=== PATIENT | male | born 1995 | race Caucasian/White ===

== ENCOUNTER 2019-04-15 09:22 | Emergency (ER) | payer BC, SELFPAY ==
--- NOTE | 2019-04-15 11:21 | EDPHYS ---
Physician Documentation [facility] Name: Javier Guzman Age: 24 yrs Sex: Male : 1995 Arrival Date: 04/15/2019 Time: 09:29 Bed 12 Private MD: ED Physician Bright Ashton HPI: 04/15 11:22 This 24 yrs old Male presents to ER via Wheelchair with complaints of Ankle kdr Injury. 11:22 The patient presents with decreased range of motion, a deformity, an injury, pain, that kdr is acute, swelling, tenderness, weakness. The complaints affect the right ankle, right ankle. Onset: The symptoms/episode began/occurred yesterday. Context: The problem was [place] dock and stepped on a rope - inverting his right ankle. He is able to bear weight but limps, resulted from a mis-step by the patient, The patient can partially bear weight on the affected extremity. the patient is able to ambulate, with mild difficulty. Associated signs and symptoms: The patient has no apparent associated signs or symptoms. Modifying factors: The symptoms are alleviated by nothing, the symptoms are aggravated by weight bearing, movement. Severity of symptoms: At their worst the symptoms were mild, in the emergency department the symptoms are unchanged. The patient has not experienced similar symptoms in the past. The patient has not recently seen a physician. Historical: - Allergies: 09:34 No Known Allergies; la1 - PMHx: 09:34 None; la1 - Immunization history:: Adult Immunizations up to date. - Social history:: Smoking status: Patient/guardian denies using tobacco. - Ebola Screening: : No symptoms or risks identified at this time. ROS: 11:22 Constitutional: Negative for fever, chills, and weight loss, Eyes: Negative for injury, kdr pain, redness, and discharge, Neck: Negative for injury, pain, and swelling, Cardiovascular: Negative for chest pain, palpitations, and edema. 11:22 MS/extremity: Positive for decreased range of motion, pain, swelling, tenderness, of the right ankle. Exam: 11:22 Constitutional: This is a well developed, well nourished patient who is awake, alert, kdr and in no acute distress. 11:22 Musculoskeletal/extremity: Extremities: all appear grossly normal, with no appreciated pain with palpation, noted in the right ankle: decreased ROM, pain, swelling, tenderness. Vital Signs: 09:34 BP 129 / 80; Pulse 85; Resp 16; Temp 97.8; Pulse Ox 98% on R/A; Weight 122.47 kg; la1 Height 5 ft. 8 in. (172.72 cm); Pain 3/10; 09:34 Body Mass Index 41.05 (122.47 kg, 172.72 cm) la1 MDM: 11:21 Patient medically screened. kdr 11:22 Data reviewed: vital signs, nurses notes, radiologic studies. Counseling: I had a kdr detailed discussion with the patient and/or guardian regarding: the historical points, exam findings, and any diagnostic results supporting the discharge/admit diagnosis, radiology results, the need for outpatient follow up. 04/15 09:35 Order name: Ankle Right 3 View XRAY la1 04/15 10:43 Order name: [place] wrap-joint: Right ankle; Complete Time: 11:05 kdr 04/15 10:43 Order name: Aircast Ankle Splint; Complete Time: 11:05 kdr 04/15 10:43 Order name: Crutches; Complete Time: 11:05 kdr Administered Medications: No medications were administered Disposition: 04/15/19 11:21 Discharged to Home. Impression: Sprain of deltoid ligament of right ankle. - Condition is Stable. - Discharge Instructions: Ankle Sprain, [id number]-[id number]. - Prescriptions for Ibuprofen 600 mg Oral Tablet - take 1 tablet by ORAL route every 6 hours As needed take with food; 30 tablet. - Medication Reconciliation Form, Thank You Letter, Work release form form. - Follow up: Private Physician; When: 2 - 3 days; Reason: If symptoms return, Further diagnostic work-up, Recheck today's complaints, Continuance of care, Re-evaluation by your physician. - Problem is new. - Symptoms have improved. Signatures: Dispatcher [employer] EDWI Bright Ashton MD MD [facility] Zoe Vigil RN RN ss Attema, Lee, RN RN la1 Corrections: (The following items were deleted from the chart) 11:53 11:21 04/15/2019 11:21 Discharged to Home. Impression: Sprain of deltoid ligament of ss right ankle. Condition is Stable. Forms are Medication Reconciliation Form, Thank You Letter, Antibiotic Education, Prescription Opioid Use. Follow up: Private Physician; When: 2 - 3 days; Reason: If symptoms return, Further diagnostic work-up, Recheck today's complaints, Continuance of care, Re-evaluation by your physician. Problem is new. Symptoms have improved. kdr
--- NOTE | 2019-04-15 11:21 | ER ---
Nurse's Notes [facility] Name: Javier Guzman Age: 24 yrs Sex: Male : 1995 Arrival Date: 04/15/2019 Time: 09:29 Bed 12 Private MD: Diagnosis: Sprain of deltoid ligament of right ankle Presentation: 04/15 09:33 Presenting complaint: Patient states: Rolled my right ankle yesterday, in a lot of pain la1 today. Transition of care: patient was not received from another setting of care. Onset of symptoms was April 15, 2019. Risk Assessment: Do you want to hurt yourself or someone else? Patient reports no desire to harm self or others. Initial Sepsis Screen: Does the patient meet any 2 criteria? No. Patient's initial sepsis screen is negative. Does the patient have a suspected source of infection? No. Patient's initial sepsis screen is negative. Care prior to arrival: None. 09:33 Method Of Arrival: Wheelchair la1 09:33 Acuity: TED 4 la1 Historical: - Allergies: 09:34 No Known Allergies; la1 - PMHx: 09:34 None; la1 - Immunization history:: Adult Immunizations up to date. - Social history:: Smoking status: Patient/guardian denies using tobacco. - Ebola Screening: : No symptoms or risks identified at this time. Screenin:36 Abuse screen: Denies threats or abuse. Nutritional screening: No deficits noted. la1 Tuberculosis screening: No symptoms or risk factors identified. Fall Risk None identified. Assessment: 09:35 General: Appears in no apparent distress. Behavior is calm, cooperative. Pain: la1 Complains of pain in right lateral malleolus. Neuro: Level of Consciousness is awake, alert, obeys commands. Cardiovascular: Capillary refill < 3 seconds Patient's skin is warm and dry. Respiratory: Airway is patent. Musculoskeletal: Circulation, motion, and sensation intact. Capillary refill < 3 seconds, Range of motion: intact in right ankle. 11:05 Reassessment: Patient appears in no apparent distress at this time. Patient and/or ss family updated on plan of care and expected duration. Pain level reassessed. Patient is alert, oriented x 3, equal unlabored respirations, skin warm/dry/pink. awaiting radiology report. Vital Signs: 09:34 BP 129 / 80; Pulse 85; Resp 16; Temp 97.8; Pulse Ox 98% on R/A; Weight 122.47 kg; la1 Height 5 ft. 8 in. (172.72 cm); Pain 3/10; 09:34 Body Mass Index 41.05 (122.47 kg, 172.72 cm) la1 ED Course: 09:29 Patient arrived in ED. as 09:34 Triage completed. la1 09:34 Arm band placed on left wrist. la1 09:36 Call light in reach. la1 09:40 Bright Ashton MD is Attending Physician. kdr 09:57 Zoe Vigil, RN is Primary Nurse. ss 10:24 Ankle Right 3 View XRAY In Process Unspecified. EDMS 11:05 No provider procedures requiring assistance completed. Patient did not have IV access ss during this emergency room visit. Crutch training done. [place] wrap to right ankle Air stirrup applied to right ankle. Administered Medications: No medications were administered Outcome: 11:21 Discharge ordered by . kdr 11:53 Discharged to home ambulatory, with crutches. ss 11:53 Condition: good 11:53 Discharge instructions given to patient, Instructed on discharge instructions, follow up and referral plans. medication usage, Demonstrated understanding of instructions, follow-up care, medications, Prescriptions given X 1. 11:53 Patient left the ED. ss Signatures: Dispatcher [employer] EDMS Bright Ashton MD MD kdr Maryse Rocha as Zoe Vigil RN RN Romeo Panda RN RN la1
--- NOTE | 2019-04-15 11:54 | RAD REPORT ---
EXAM DESCRIPTION: RAD - Ankle Right 3 View - 04/15/2019 10:23 am CLINICAL HISTORY: PAIN COMPARISON: No comparisons FINDINGS: Soft tissue swelling is seen about the ankle. No acute fractures demonstrated.
== END 2019-04-15 11:53 | disposition home or self-care (01) ==
LOC: ER 09:22
DX: S93.421A Sprain of deltoid ligament of right ankle, initial encounter (principal)
CPT/HCPCS: 99283